=== PATIENT | female | born 1990 | race Caucasian/White ===

== ENCOUNTER 2023-07-03 16:34 | Outpatient (CLI) | payer OTHER, SELFPAY ==
--- NOTE | 2023-07-03 17:00 | CRLHL7_ITS ---
For Patients: As a result of the Century Cures Act, medical imaging exams and procedure reports are released immediately into your electronic medical record. You may view this report before your referring provider. If you have questions, please contact your health care provider. INDICATION: Dating and viability TECHNIQUE: Transvaginal scanning was performed to optimally evaluate the IUP and adnexa. Ovarian blood flow was evaluated with color-flow and pulsed Doppler. COMPARISON: None. FINDINGS: There is a living IUP with gestational age of 9 weeks 6 days by LMP and 10 weeks 3 days by today`s crown-rump length. EDC based on today`s crown-rump length is 01/25/2023. The embryonic heart rate is measured at 171 beats per minute. The placenta is not yet formed. No subchorionic hemorrhage is evident. The ovaries are normal in size and shape. The right ovary measures 3.5 x 3.0 x 1.4 cm and the left 3.5 x 1.7 x 1.0 cm. Ovarian blood flow is demonstrated with color-flow and pulsed Doppler. No adnexal mass or free fluid is apparent. IMPRESSION: 1. Living IUP with gestational age of 9 weeks 6 days by LMP and 10 weeks 3 days by today`s crown-rump length. EDC based on today`s crown-rump length is 01/25/2023. 2. No complication evident. Dictated by Moises Mederos MD @ 07/05/2023 1:40:13 PM (Electronically Signed)
== END 2023-07-03 16:35 | disposition home or self-care (01) ==
LOC: US 16:35
PROVIDERS: PCP Registered Nurse; Visit Provider Registered Nurse
DX: Z34.91 Encounter for supervision of normal pregnancy, unspecified, first trimester (principal); Z3A.09 9 weeks gestation of pregnancy
CPT/HCPCS: 76817; 86703; 86706; 86803; 86850; 86900; 86901; 87086; 87340; 87491; 87591

== ENCOUNTER 2023-07-03 18:04 | Outpatient (CLI) | payer OTHER, SELFPAY ==
[2023-07-03 22:02] LABS: Chlamydia DNA Amplified* NOT DETECTED (No Detected); GC DNA Amplified* NOT DETECTED (No Detected)
== END 2023-07-03 18:05 | disposition home or self-care (01) ==
PROVIDERS: PCP Registered Nurse; Visit Provider Registered Nurse
DX: Z34.91 Encounter for supervision of normal pregnancy, unspecified, first trimester (principal); Z3A.09 9 weeks gestation of pregnancy
CPT/HCPCS: 86592; 86703; 86704; 86706; 86762; 86787; 86803; 86850; 86900; 86901; 87086; 87340; 87491; 87591

== ENCOUNTER 2023-09-06 16:41 | Outpatient (CLI) | payer OTHER, SELFPAY ==
--- NOTE | 2023-09-06 17:00 | US_ITS ---
Patient: PAUL BRAY Facility:?[facility] Patient ID:?[id number] Site Patient ID:?[id number]. Site :?1990 Study:?US-Abdomen RUQ-09/06/2023 5:11:31 PM Ordering Physician:LORETO MERA Final Report: INDICATION: Right upper quadrant pain. COMPARISON: None. TECHNIQUE: Real time han scale imaging and color Doppler analysis was performed of the right upper quadrant. FINDINGS: Liver: The liver is normal in size measuring 13.8 cm in length. Normal echogenicity. No focal liver lesions identified. Gallbladder: No stones or sludge. No wall thickening or pericholecystic fluid. Negative sonographic Isaacs sign. Bile ducts: The common bile duct measures 2 mm in diameter. Pancreas: Normal where seen. Right kidney: The right kidney measures 11.2 cm in length. No hydronephrosis. Vascular: Normal caliber proximal abdominal aorta. The IVC and main portal vein appear patent. IMPRESSION: Unremarkable exam. Dictated by Ella Dhaliwal MD @ 09/07/2023 3:48:25 AM Signed by:?Ella Dhaliwal MD @09/07/2023 3:48:25 AM (Electronic Signature)
== END 2023-09-06 16:42 | disposition home or self-care (01) ==
LOC: US 16:42
PROVIDERS: Visit Provider Obstetrics & Gynecology
DX: R10.11 Right upper quadrant pain (principal)
CPT/HCPCS: 76705

== ENCOUNTER 2023-09-13 12:44 | Outpatient (CLI) | payer OTHER, SELFPAY ==
--- NOTE | 2023-09-13 13:00 | US_ITS ---
Patient: PAUL BRAY Facility:?[facility] Patient ID:?[id number] Site Patient ID:?[id number]. Site :?1990 Study:?US-OB Pelvis BFAS-09/13/2023 1:53:25 PM Ordering Physician:LORETO MERA Final Report: INDICATION: Evaluate anatomy. COMPARISON: 07/03/2023 TECHNIQUE: Real time han scale imaging of the fetus was performed as well as color Doppler analysis of the umbilical vessels. FINDINGS: Sonographic imaging demonstrates a single living intrauterine gestation. Fetus demonstrates a regular cardiac rate of 142 beats per minute. Fetus has a longitudinal vertex position. The placenta lies anteriorly without evidence of placenta previa. The placental edge is located 9.9 cm from the internal cervical os. Amniotic fluid volume appears normal. Single deepest vertical pocket: 6.2 cm. The cervix is closed and measures 3.6 cm in length. The composite ultrasound gestational age is calculated at 20 weeks 5 days with an estimated sonographic due date of 01/26/2024. The estimated weight is 358 grams which lies at the 67th %. The following biometric measurements were obtained: Biparietal diameter: 4.9 cm/20 weeks 6 days 80th% Head circumference: 18.2 cm/20 weeks 4 days 61st% Abdominal circumference: 15.0 cm/20 weeks 2 days 47th% Femur length: 3.4 cm/20 weeks 6 days 65th% The HC/AC ratio measures: 1.21 range (1.06-1.25) On anatomic survey, there is a normal appearance of the cerebral ventricles, cavum septi pellucidi, cisterna magna and cerebellum. The nose, lips, and facial profile appear normal. The cervical, thoracic and lumbar spine are well visualized and appear normal. There is a normal four-chamber heart view and the left and right ventricular outflow tracts appear normal. The diaphragm and stomach appear normal. The kidneys and bladder also appear normal. There is a normal three-vessel cord and cord insertion site. The four extremities appear normal. Anterior uterine fibroid is present measuring 2.5 x 1.3 x 2.4 cm. IMPRESSION: Concordance of clinical and sonographic dating. No intrinsic abnormalities noted on anatomic survey. Anterior uterine fibroid measuring 2.5 cm. Dictated by Byron Scherer MD @ 09/14/2023 10:15:44 AM Signed by:?Byron Scherer MD @09/14/2023 10:15:44 AM (Electronic Signature)
== END 2023-09-13 12:45 | disposition home or self-care (01) ==
LOC: US 12:44
PROVIDERS: Visit Provider Obstetrics & Gynecology
DX: Z34.92 Encounter for supervision of normal pregnancy, unspecified, second trimester (principal); O34.12 Maternal care for benign tumor of corpus uteri, second trimester; D25.9 Leiomyoma of uterus, unspecified; Z3A.20 20 weeks gestation of pregnancy
CPT/HCPCS: 76805

== ENCOUNTER 2023-11-07 15:03 | Outpatient (CLI) | payer OTHER, SELFPAY | END 2023-11-07 15:04 | disposition home or self-care (01) | LOC: NFLDREF 11-23 15:03 | PROVIDERS: Visit Provider Advanced Practice Midwife | DX: Z34.03 Encounter for supervision of normal first pregnancy, third trimester (principal) | CPT/HCPCS: 86592 ==

== ENCOUNTER 2024-01-03 11:00 | Outpatient (CLI) | payer OTHER, SELFPAY ==
[2024-01-04 12:57] LABS: Strep B DNA Probe Negative (Negative)
[2024-01-04 12:59] LABS: Strep B Susceptibility Needed? No
== END 2024-01-03 11:01 | disposition home or self-care (01) ==
PROVIDERS: Visit Provider Advanced Practice Midwife
DX: Z34.93 Encounter for supervision of normal pregnancy, unspecified, third trimester (principal); Z3A.36 36 weeks gestation of pregnancy
CPT/HCPCS: 87081; 87653

== ENCOUNTER 2024-02-04 03:49 | Inpatient (IN) | payer OTHER, SELFPAY ==
[2024-02-04] VITALS (38 sets, daily range): BP systolic 98–160; BP diastolic 54–91; PULSE 58–90; RESP 16–18; TEMP 36.3–37.4; O2SAT 97
--- OUTSIDE RECORDS SUMMARY | 2024-02-04 01:20 | XMS_ITS | Clinical Summary ---
Author Organization [facility] Address [place], [place] [address] Care Team Providers Care Septic Technician Name Role Phone Pcp, No Primary Care Provider Unavailabl e Allergies Active Allergy Reactions Criticality Noted Date Comments Gluten Stomach Upset,Nausea Only Unknown 01/30/2017 Milk Stomach Upset,Nausea And Vomiting Unknown Medications Medication Sig Dispensed Refills Start Date End Date Status magnesium 250 mg tab Take 1 Tablet by mouth once daily. Active cholecalciferol (VITAMIN D3) 1,000 unit tablet Nature made Vitamin D3 2000iu daily 0 09/15/2021 Active medication order composer collagen in tea at times 0 09/15/2021 Active Active Problems No known active problems Immunizations Name Administration Dates Next Due DTP 10/19/1994, 1,01/18/1990,1989,08/15 Hepatitis A (Peds) 07/16/2008 Hepatitis B, Unspecified 04/25/2002,10/14/2001,0 09/09/2001 Hib Conjugate, Unspecified 11/07/1990 Inactivated Polio Vaccine 10/19/1994,11/05/1990, 1989,1989 MMR 09/26/2001,11/05/1990 Td (Age >=7 Years) 01/12/2003 Tdap 05/13/2012 Typhoid (injectable) 07/16/2008 Family History Medical History Relation Name Comments Good Health Father Good Health Mother Good Health Sister 1 Good Health Sister 2 Relation Name Status Comments Father Mother Sister 1 Sister 2 Social History Tobacco Use Types Packs/Day Years Used Date Smoking Tobacco: Never Smokeless Tobacco: Never Tobacco Cessation:Counseling Given: Yes Alcohol Use Standard Drinks/Week Comments Yes 1 (1 standard drink = 0.6 oz pur e alcohol) occ glass wine Social Connections Answer Date Recorded Frequency of Communication with Friends and Fami ly Not on file 2021 Financial Resource Strain Answer Date R ecorded Difficulty of Paying Living Expenses Not on file 2021 Difficulty of Paying Living Expenses Not on file 2021 Sex and Gender Information Value Date Recorded Sex Assigned at Not on file Gender Identity Not on file Sexual Orientation Not on file Obstetrics History Last Filed Vital Signs Vital Sign Reading Time Taken Comments Blood Pressure 114/63 09/15/2021 1:41 PM CDT Pulse 60 09/15/2021 1:41 PM CDT Temperature 36.9 ??C (98.5 ??F) 12/17/2012 1 :40 PM CDT Respiratory Rate - - Oxygen Saturation 100% 12/17/2012 1:4 0 PM CDT Inhaled Oxygen Concentration - - Weight 78.1 kg (172 lb 3.2 oz) 09/16/19 1:41 PM CDT with shoes Height 175.3 cm (5' 9) 09/15/2021 1:41 PM CDT Body Mass Index 25.43 09/15/2021 1:41 PM CDT Plan of Treatment Health Maintenance Due Date Last Done Comments Depression screening for age 12+ 2001 Hepatitis C screening for ag e 18-79 2007 Pap test for age 21-65 01/20/2022 9, 01/21/2016 Tetanus booster 05/13/2022 05/13/2012, 05/13/2012, 01/12/2003 BMI (ht and wt on same day) for age 18+ 09/15/2022 09/15/2021 COVID-19 vaccine series ( season) 2023 Influenza for age 9-49 02/24/2024 Tdap Completed 05/13/2012 HIV for age 15-65 Completed 09/17/2012 Pneumococcal series for age 6-64 Aged Out No longer eligible b ased on patient's age to complete this topic Procedures Procedure Name Priority Date/Time Associated Diagnosis Comments UX DEVELOPER THIN PREP PAP SCREEN IMAGED Routine 01/20/2019 12:00 PM CDT ANTI HIV 1/2 Routine 09/17/2012 9:19 AM CDT Foreign travel from Last 3 Months or Most Recently Relevant to Health Maintenance Results * UX DEVELOPER THIN PREP PAP SCREEN IMAGED (01/20/2019 12:00 PM CDT) Case Report Gynecologic Cytology Report ? Case: [id number] ? Authorizing Provider: ??Margaret Lester PA-C ?Collected: ? 01/20/2019 1200 ? Ordering Location: ? [facility] ?Received: ?01/20/2019 1859 ? First Screen: ?Rios Vega ? Specimen: ?UX DEVELOPER ThinPrep Vial Screening, Cervical/Vaginal, 01/20/19 ? 01/28/2019 1:24 PM CDT [facility] INTERPRETATION/ RESULT NEGATIVE FOR INTRAEPITHELIAL LESION OR MALIGNANCY (NIL) (none) 01/28/2019 1:24 PM CDT [facility] IMEN ADEQUACY Satisfactory for evaluation Endocervical component present 01/28/2019 1:24 PM CDT [facility] HPV REQUEST HPV if ASCUS 01/28/2019 1:24 PM CDT [facility] Date of LMP 01/16/2019 01/28/2019 1:24 PM CDT [facility] Last Pap Date 01/28/2019 1:24 PM CDT [facility] Comment:2015 Last Pap Result NIL 9 1:24 PM CDT [facility] Automated Review Successful 01/28/2019 1:24 PM CDT [facility] Comment:Specimen processed s uccessfully by automated oil refinery operator device, ShotlstPrep Imaging System, [employer] Note The pap test is a screening technique, not a diagnostic procedure. ??It is used primarily to screen for squamous cancers and precursor lesions. ??Published studies have shown that it is subject to both false negative and false positive results. ??The pap test should not be used as the sole means to diagnose or exclude pre-malignant and malignant lesions. Cytology is screened and interpreted at [facility] - [address], [place] [address] and [facility] - [address]; [place] [address] and [facility] - [address]; [place] [address] and [facility] [address]; [place] [address] 01/28/2019 1:24 PM CDT [facility] Other (Cervical/Vagina l) 01/20/2019 12:00 PM CDT 01/20/2019 6:59 PM CDT September Trevon ROBERSON PATHOLOGY/CYTOLOGY Performing Organization Address City/[facility]/ZIP Co de Phone Number [facility] [address] [place] [address], * ANTI HIV 1/2 (09/17/2012 9:19 AM CDT) ANTI HIV 1/2 Non-reacti ve [facility] Blood specimen (specimen) BLOOD SPECIMEN / Unknown 09/17/2012 9:19 AM CDT 09/17/2012 9:05 AM CDT Zuleika Waters CERAMIC DESIGN ENGINEER SEND OUTS [employer] [facility] INTERNAL ZIP [id number] [place] [address] from Last 3 Months or Most Recently Relevant to Health Maintenance Care Teams Septic Technician Relationship Specialty Start Date End Date Pcp, No . PCP - General 05/31/18
[2024-02-04 02:16] LABS: Amnisure Rom* POSITIVE
--- NOTE | 2024-02-04 03:33 | P.LDBA_ITS ---
Subjective History of Present Illness Date Seen: 02/04/24 Narrative: Ruma is being admitted to Labor and Delivery for SROM around 29. She is a 33 year old at 40.5 weeks gestation. Her full history and physical was dictated by Brit Valadez CNM on 01/09/24. Please see this for details. She has been leaking clear fluid since 29 and started ellie shortly after. She is ellie about every 5-10 minutes. They are mild but she feels they have become more painful over time. We discussed options for continuing labor including expectant management or Pitocin augmentation and discussed risks and benefits of each. She declines a SVE at this time but is open to it later this m orning if no change in situation before then. She would like to proceed with expectant management at this time. Specific Issues/Plans G 1 P 0 H&P done by Chung Valadez APRN, CNM on 01/09/24 1. Factor 5 Leiden, heterozygous. She has never had a clot. Her mother had a PE post cancer diagnosis, after age 50. Recommended daily baby aspirin. Reviewed ACOG recommendations. Offered antepartum surveillance w/o anticoagulation therapy or prophylactic LMWH/UFH. She is not currently interested in anticoagulation therapy. Recommend prophylactic anticoagulation therapy with intermediate- dose LMWH/UFH. 2. Rubella nonimmune. Recommend vaccine. 3. Anemia at 28 weeks 10.3, recommended iron supplements Taking Iron EOD Hgb at 34wks 11.4 Flu: Declined. Covid: Declined. OB - Problem Based A/P Additional Plan (1) SROM (spontaneous rupture of membranes): Status: Acute (2) Pain during labor: Status: Acute (3) Factor 5 Leiden mutation, heterozygous: Problem details: No personal history of clots Status: Acute (4) Rubella non-immune status, antepartum: Status: Acute Plan ASSESSMENT:? at 40.5 weeks gestation? GBS negative? complicated by: factor 5 Leiden heterozygous (declined anticoagulation therapy in ), rubella non-immune, anemia (resolved).? Elevated BP on admit? Postterm IOL? Blood type:?A+ PLAN:? 1. Reviewed risks and benefits of expectant management vs Pitocin augmentation. Would like expectant management. Will consider augmentation if needed. 2. Candidate for analgesia of choice. Planning unmedicated .? 3. Anticipate ? 4. Expectant management at this time.? 5. Intermittent auscultation after reactive tracing. Delivery/Labor/Induction Plan Plan: expectant management OB Result Labs Blood Type: A (+) positive Rubella: nonimmune RPR/VDLR: nonreactive GBS Status: negative HBsAG: negative OB Exam Physical Exam Vital signs: Temp Pulse Resp BP Pulse Ox 98.1 F 58 L 16 122/85 97 02/04/24 01:24 02/04/24 01:37 02/04/24 01:24 02/04/24 01:37 02/04/24 01:39 Narrative: Psychiatric:? Alert and oriented x3? HEENT:? Normocephalic, atraumatic? Neck:? Supple without adenopathy or thyromegaly? Lungs:? Clear to auscultation bilaterally? Heart:? Regular rate and rhythm, no murmur, rub or gallop? Abdomen:? Soft, nontender, and gravid? Extremities:? No edema or erythema? Detailed Labor and Delivery Exam Patient Gravid: Yes Contraction Frequency: 2-6 Contraction intensity: Mild Fetus (Single) Heart Rate Baseline: 115 Monitor Accelerations: Present Monitor Decelerations: None Police Communications Operator Variability: Moderate (6-25)
--- NOTE | 2024-02-04 08:36 | PM.OBPNL ---
Subjective Time Seen by Provider: 09:30 Date Seen: 02/04/24 Narrative: Ruma is a 33 yo G1 at 40 5/7 weeks gestation that presented earlier this morning for ROM that occurred at 0030 this morning with clear fluid. She was feeling some mild cramping after but was able to rest some. Since then they have slowly became more regular and she is feeling them more. She continues to leak scant amounts of clear fluid. She denies any bleeding. She is coping well with labor and supported by her , Willie. Objective Exam: Objective: Constitutional: Alert and oriented x3, mild/moderate distress, coping well Vital signs stable, see nurse documentation Abdomen: gravid, contractions palpate mild/moderate with contractions and soft between Cervix: Deferred NST: 115 bpm/moderate variability Contractions every 3-5 minutes Vital Signs: Last Vital Signs Temp 97.6 F 02/04/24 07:26 Pulse 70 02/04/24 07:28 Resp 16 02/04/24 06:39 BP 123/80 02/04/24 07:28 Pulse Ox 97 02/04/24 07:25 Contractions Contraction intensity: Mild Plan Plan: ASSESSMENT:? at 40.5 weeks gestation? GBS negative? complicated by: factor 5 Leiden heterozygous (declined anticoagulation therapy in ), rubella non-immune, anemia (resolved).? Elevated BP on admit? Blood type:?A+ PLAN:? 1. Reviewed risks and benefits of expectant management vs Pitocin augmentation. Would like expectant management. Will consider augmentation if needed. 2. Candidate for analgesia of choice. Planning unmedicated . Candidate for analgesia of choice.?? 3. Patient encouraged to reposition and ambulate to promote physiologic labor and .? 4. Expectant management at this time.? 5. Intermittent auscultation after reactive tracing. 6. Anticipate .
--- NOTE | 2024-02-04 17:03 | PM.OBPNL ---
Subjective Date Seen: 02/04/24 Narrative: Ruma is a 33 yo G1 at 40 5/7 weeks gestation that presented early this morning for ROM with clear fluid at 0030. She has been changing positions throughout the day, doing the labor warm-up, and resting to help facilitate labor. Her contractions have progressively became more regular and intense. She is now working hard breathing through them and intermittently feeling rectal pressure. Exam has been deferred since admission due to ROM. She has had minimal leaking of fluid since this morning. We have discussed AROM of forebag if needed to facility labor. Has declined when asked earlier, is open to the idea. is at bedside and is very supportive and helpful with labor. Objective Exam: Objective: Constitutional: Alert and oriented x3, moderate/severe distress, coping well Vital signs stable, see nurse documentation Abdomen: gravid, contractions palpate moderate/strong with contractions and soft between Cervix: 5 cm/90%/0 station/vertex Intermittent auscultation: 120's Vital Signs: Last Vital Signs Temp 98.3 F 02/04/24 16:58 Pulse 71 02/04/24 14:56 Resp 16 02/04/24 06:39 BP 111/63 02/04/24 14:56 Pulse Ox 97 02/04/24 10:48 Plan Plan: ASSESSMENT:? at 40.5 weeks gestation? GBS negative? complicated by: factor 5 Leiden heterozygous (declined anticoagulation therapy in ), rubella non-immune, anemia (resolved).? Elevated BP on admit, normotensive since admission Labor type: Spontaneous, Active labor? status reassuring PLAN:? 1. Continue with expectant management. Will consider augmentation if needed. Discussed rupture of forebag. Patient is agreeable, ruptured for clear fluid. 2. Candidate for analgesia of choice. Planning unmedicated . Candidate for analgesia of choice.?? 3. Patient encouraged to reposition and ambulate to promote physiologic labor and .? 4. Expectant management at this time.? 5. Intermittent auscultation after reactive tracing. 6. Anticipate .
[2024-02-04] MEDS: LACTATED RINGERS 1000 ML 1,000 ML 1200 ML IV ×2 (22:07→23:06)
[2024-02-04 22:11] LABS: Basophils Percent Auto 0.1 % (0.0-3.0); Hematocrit 37.9 % (33.0-51.0); Hemoglobin* 12.7 gm/dL (12.0-16.0); Immature Granulocytes Pct Auto 0.5 %; Lymphocytes Percent Auto 4.2 % (20-44); Mean Corpuscular HGB Conc 34 gm/dL (32-36); Mean Corpuscular Hemoglobin 30 pg (26-34); Mean Corpuscular Volume 90 fL (80-100); Monocytes Percent Auto 2.2 % (0.0-11.0); Platelet Count* 189 K/uL (140-440); RDW Coefficient of Variation % 12.5 % (11.5-15.5); Slide Review Reflex No; White Blood Count* 19.96 K/uL (4.50-11.00)
--- NOTE | 2024-02-04 22:47 | PM.OBPNL ---
Subjective Date Seen: 02/04/24 Narrative: Ruma is a 33 yo G1 at 40 5/7 weeks gestation that presented early this morning for ROM with clear fluid at 0030. She has been changing positions throughout the day, doing the labor warm-up, and resting to help facilitate labor. Her contractions have progressively became more painful and regular. She is breathing through them. Her is providing her labor support. She was in the tub and we discussed cervical exam to assess labor status. She remains unchanged from a few hours ago. We discussed ways to help with labor progress including something to help her relax. We reviewed options including nitrous, fentanyl, or epidural. Patients plan was to go unmedicated. Objective Exam: Objective: Constitutional: Alert and oriented x3, severe distress, coping well Vital signs stable, see nurse documentation Abdomen: gravid, contractions palpate moderate/strong with contractions and soft between Cervix: 5 cm/70%/0 station/vertex NST: 125 bpm/moderate variability/15x15 accelerations/ early decelerations/contractions every 1-4 minutes Vital Signs: Last Vital Signs Temp 98.5 F 02/04/24 19:28 Pulse 83 02/04/24 21:34 Resp 16 02/04/24 06:39 BP 139/63 02/04/24 21:34 Pulse Ox 97 02/04/24 10:48 Assessment Heart Rate Baseline: 115 Plan Plan: ASSESSMENT:? at 40.5 weeks gestation? GBS negative? complicated by: factor 5 Leiden heterozygous (declined anticoagulation therapy in ), rubella non-immune, anemia (resolved).? Elevated BP on admit, normotensive since admission Labor type: Spontaneous, Active labor? Category I Tracing PLAN:? 1. Continue with expectant management. Discussed ways to help with relaxing. 2. Candidate for analgesia of choice if desired. She was planning unmedicated but is open to trying nitrous. She still has other options as desired. 3. Intermittent monitoring of status. Will consider continuous if she desires other pain management options. 4. Patient encouraged to reposition and ambulate to promote physiologic labor and .? 5. Anticipate ?
[2024-02-04] MEDS: BUPIVACAINE 0.25% PF 10 ML 10 ML ML EPIDURAL (22:58)
[2024-02-04] MEDS: ROPIVACAINE 0.2% 100 ml 100 ML 12 MG EPIDURAL (23:00)
--- NOTE | 2024-02-04 23:13 | PM.ANBPRC ---
PFSH PFS Medical History Small intestinal bacterial overgrowth ?K63.8219 - Small intestinal bacterial overgrowth, unspecified (ICD-10) Surgical History [place] teeth extracted ?K08.409 - Partial loss of teeth, unspecified cause, unspecified class (ICD-10) Family History Mother Gallbladder cancer, Onset Age: 57 Pulmonary embolism Maternal Grandmother Diabetes, Onset Age: 30 Uterine cancer, Onset Age: 68 Sister Thyroid disease Maternal Grandfather DVT (deep venous thrombosis), Onset Age: 20 Pancreatic cancer, Onset Age: 70 Paternal Grandmother Brain aneurysm Sister History of cholecystectomy Uncle Pancreatic cancer, Onset Age: 50 Social History Narrative: 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 What is your current living situation?: I presently have a place to live Problems where you live: no known problems In the past 12 months, utilities in danger of being shut off: no In past 12 months, lack of transportation kept you from medical appts, meetings, work, or getting things needed for daily living: no In the past 12 mos, have been you worried that your food would run out before you had money to buy more?: never true In the past 12 mos, the food you bought just didn't last and you didn't have money to buy more?: never true Smoking Status: Never smoker How often does anyone, including family, friends and others, physically hurt you: never How often does anyone, including family, friends and others, insult or talk down to you: never How often does anyone, including family, friends and others, threaten you with harm: never How often does anyone, including family, friends and others, scream or curse at you: never Little interest or pleasure in doing things: not at all Feeling down, depressed, or hopeless: not at all Meds Home Medications and Allergies Home Medications ?Medication ?Instructions ?Recorded ?Confirmed ?Type cholecalciferol (vitamin D3) 50 100 mcg PO QDAY 07/03/23 02/04/24 History mcg (2,000 unit) capsule docosahexaenoic acid 200 mg 200 mg PO DAILY 07/03/23 02/04/24 History capsule ( DHA) magnesium 250 mg tablet 250 mg PO QDAY 07/03/23 02/04/24 History aspirin 81 mg tablet,delayed 81 mg PO QDAY 08/01/23 02/04/24 History release (Adult Low Dose Aspirin) ferrous sulfate 27 mg iron tablet 27 mg PO .every other day 11/23/23 02/04/24 History Allergies Allergy/AdvReac Type Severity Reaction Status Date / Time gluten Allergy Intermediate Gastrointestinal Verified 02/04/24 14:41 Upset Results Labs Labs: Laboratory Results - last 24 hr 02/04/24 02/04/24 01:40 22:05 WBC 19.96 H RBC 4.20 Hgb 12.7 Hct 37.9 MCV 90 MCH 30 MCHC 34 RDW Coeff of Rikki 12.5 Plt Count 189 Neut % (Auto) 93.0 H Lymph % (Auto) 4.2 L [place] % (Auto) 2.2 Eos % (Auto) 0.0 Baso % (Auto) 0.1 Neut # (Auto) 18.60 H Lymph # (Auto) 0.80 L [place] # (Auto) 0.40 Eos # (Auto) 0.00 Baso # (Auto) 0.00 Abs Immat Gran (auto) 0.10 Imm/Tot Granulo (auto) 0.5 Membrane Rupture POSITIVE Vital Signs Vital Signs: Last Vital Signs Temp 98.5 F 02/04/24 23:07 Pulse 88 02/04/24 23:12 Resp 16 02/04/24 06:39 BP 117/66 02/04/24 23:12 Pulse Ox 97 02/04/24 10:48 Weight: 101.877 kg Anesthesia Procedures Epidural Insertion Patient Location: OB Start Time: :25 Stop Time: 23:25 Start Date: 02/04/24 Stop Date: 02/04/24 Reason for Block: procedure for pain Patient Position: sitting Performed By: Johnathan Fisher Preanesthetic Checklist: IV checked, risks and benefits discussed, surgical consent, monitors and equipment checked, pre-op evaluation, timeout performed and anesthesia consent Prep: chlorhexidine gluconate Monitoring: blood pressure monitoring, continuous pulse oximetry and heart rate Approach: midline Vertebral Space: lumbar (1-5) Epidural Technique: MERLIN saline Needle Type: Tuohy needle Injection Technique: continuous catheter Needle gauge: 17 Needle Length (cm): 10 cm Needle Insertion Depth (cm): 6 Catheter Gauge: 19 Catheter Type: multi-orifice Catheter at skin depth (cm): 12 Test Dose Result: negative and lidocaine 1.5% with epinephrine 1 to 200,000
[2024-02-04] MEDS: PHENYLEPHRINE 100 MCG/ML SYRINGE IVP ×2 (23:24→23:31)
[2024-02-05] VITALS (50 sets, daily range): BP systolic 106–145; BP diastolic 45–86; PULSE 63–123; RESP 16–18; TEMP 36.6–37.2; O2SAT 96–100
[2024-02-05] MEDS: LACTATED RINGERS 1000 ML 1,000 ML 125 ML IV (02:24)
[2024-02-05] MEDS: OXYTOCIN 30 unit/500 ML in NS 30 UNIT/500 ML BAG IVPB (03:54)
--- NOTE | 2024-02-05 04:07 | PM.OBPNVD1 ---
OB - PN:Subj Subjective Date Seen: 02/05/24 OB - PN: Obj Exam Physical Exam: Vital signs: Temp Pulse Resp BP Pulse Ox 98.6 F 123 H 16 139/74 97 02/05/24 02:54 02/05/24 04:02 02/05/24 02:54 02/05/24 04:02 02/04/24 10:48 OB - PN: Obj Data Labs Labs: Laboratory Results - last 24 hr 02/04/24 22:05 WBC 19.96 H RBC 4.20 Hgb 12.7 Hct 37.9 MCV 90 MCH 30 MCHC 34 RDW Coeff of Rikki 12.5 Plt Count 189 Neut % (Auto) 93.0 H Lymph % (Auto) 4.2 L [place] % (Auto) 2.2 Eos % (Auto) 0.0 Baso % (Auto) 0.1 Neut # (Auto) 18.60 H Lymph # (Auto) 0.80 L [place] # (Auto) 0.40 Eos # (Auto) 0.00 Baso # (Auto) 0.00 Abs Immat Gran (auto) 0.10 Imm/Tot Granulo (auto) 0.5 Blood Type A Positive Antibody Screen NEGATIVE OB - PN: A/P Delivery Assessment and Plan (1) SROM (spontaneous rupture of membranes): Status: Acute (2) Pain during labor: Status: Acute (3) Factor 5 Leiden mutation, heterozygous: Problem details: No personal history of clots Status: Acute (4) Rubella non-immune status, antepartum: Status: Acute
--- NOTE | 2024-02-05 04:07 | PM.OBPNL ---
Subjective Date Seen: 02/05/24 Narrative: Ruma is a 33 yo G1 at 40 6/7 weeks gestation that presented early this morning for ROM with clear fluid at 0030. She has been changing positions throughout the day, doing the labor warm-up, and resting to help facilitate labor. Her contractions have progressively became more painful and regular. She is breathing through them. Her is providing her labor support. She is now comfortable and resting with an epidural. She was able to take a short nap and has been encouraged to try to sleep more if she can. Discussed plan of care and questions answered. Objective Exam: Constitutional: Alert and oriented x3, no distress, coping well Vital signs stable, see nurse documentation Abdomen: gravid, contractions palpate moderate/strong with contractions and soft between Cervix: 8 cm/90%/0 station/vertex NST: 145 bpm/moderate variability/15x15 accelerations/occasional late decelerations/contractions every 2-6 minutes Vital Signs: Last Vital Signs Temp 98.6 F 02/05/24 02:54 Pulse 123 H 02/05/24 04:02 Resp 16 02/05/24 02:54 BP 139/74 02/05/24 04:02 Pulse Ox 97 02/04/24 10:48 Plan Plan: ASSESSMENT:? at 40.6 weeks gestation? GBS negative? complicated by: factor 5 Leiden heterozygous (declined anticoagulation therapy in ), rubella non-immune, anemia (resolved).? GHTN based on elevated BP on 2 occasions more than 4 hours apart Labor type: Spontaneous, Active labor? Category II Tracing PLAN:? 1. Discussed expectant versus starting Pitocin. Plan Pitocin to help augment labor. Discussed slowly increasing dose. Patient is agreeable to plan. 2. Continue with epidural for labor pain support. Patient is coping well. 3. Intermittent monitoring of status. Will consider continuous if she desires other pain management options. 4. Patient encouraged to reposition and ambulate to promote physiologic labor and .? 5. GHTN diagnosis discussed with patient. Labs ordered and pending. 6. Anticipate ?
[2024-02-05 04:19] LABS: Hematocrit 35.7 % (33.0-51.0); Hemoglobin* 11.9 gm/dL (12.0-16.0); Mean Corpuscular HGB Conc 33 gm/dL (32-36); Mean Corpuscular Hemoglobin 30 pg (26-34); Mean Corpuscular Volume 91 fL (80-100); Platelet Count* 168 K/uL (140-440); Red Blood Count 3.92 m/uL (4.00-5.20); White Blood Count* 21.64 K/uL (4.50-11.00)
[2024-02-05 04:20] LABS: Slide Review Reflex No
[2024-02-05 04:35] LABS: Total Protein Urine 12 mg/dL
[2024-02-05 04:35] LABS: Aspartate Amino Transferase* 23 U/L (12-35); Blood Urea Nitrogen* 9 mg/dL (5-24); Creatinine* 0.9 mg/dL (0.5-1.5); Estimated Glomerular Filt Rate 86 ml/min
[2024-02-05 04:36] LABS: Alanine Aminotransferase* 17 U/L (4-35)
[2024-02-05 04:36] LABS: Creatinine Urine 56.8 mg/dL; Protein Creatinine Ratio Urine 0.21 (0-0.19)
[2024-02-05] MEDS: ROPIVACAINE 0.2% 100 ml 100 ML 12 MG EPIDURAL (06:22)
--- NOTE | 2024-02-05 07:22 | W.PM.OBVAGDE ---
Documented by User: Amparo Torres CNM 02/06/24 07:51 OB Procedure Vag Delivery Mother Details Mother Details: Ruma is a 33 year-old, 1, now Para 1, admitted on 02/04/24 at 40.5 weeks gestation. : 1 Para: 1 Weeks Gestation: 40.6 Admission Date: 02/05/24 Additional Details Amniotic Membrane Status: SROM Amniotic Membrane Rupture Date: 02/04/24 Amniotic Membrane Rupture Time: 00:30 Amniotic Membrane Fluid Description: Clear Analgesia/Anesthesia Type: Epidural Waterbirth: No Pitcoin: Yes (Max dose 2 mu, AMTSL) Intrapartal Events: Labor Augmentation Delivery augmentation: rupture of membranes (forebag rupture) and pitocin Labor Onset: 17:22 Complete: 06:19 Pushin:20 Heart: heart tones during second stage were category II with variable decelerations during contractions with slow return to baseline and moderate variability. Delivery Details Delivery Date: 02/05/24 Delivery Time: 07:11 Route of delivery: Gender: Female Viability: Alive; Heart Rate Present Position at Delivery: OA Delivery Details: Patient was admitted for PROM 02/03 at 0030 with clear fluid and progressed normally to 5 cm then stalled. She labored in many positions, in the tub, and ambulating. After subsequent checks without change, it was recommended she try a different method of pain relief. She agreed to try nitrous and this worked for a short bit. She then requested an epidural and labor progressed normally. Pitocin was started to help augment labor due to being >24 hours since ROM, it was only ever on 2 cm. Patient was complete at 0619 and pushing at 0620. of a viable female at 0711 in left tilt semi-fowlers on the bed. Vertex delivered OA. No nuchal cord or shoulder. Body delivered easily and without incident. passed to mothers abdomen with a vigorous cry. Cord was clamped and cut at > 5 minutes. APGARS were 8 at one minute and 9 at five minutes respectively. Mouth was bulb suctioned. MARTÍN Nieves assumed care after delivery. Patient has short perineal body, initial exam of laceration was suspicious for rectal muscle involvement, Dr. Bonner was called in to assess. Intact placenta with a 3 vessel cord delivered spontaneously at . Fundus firm. [1st/2nd degree] identified and repaired in typical fashion. QBL [ ] cc. Mother and baby stable; mother plans to breastfeed. weight pending. 1 Minute Interval Total Score: 8 5 Minute Interval Total Score: 9 Additional Details Shoulder Dystocia: No Procedure Done: Global Event Summary Status: Mother and were stable after delivery. Disposition: floor Documented by User: Ezequiel Valadez CNM 02/05/24 09:17 OB Procedure Vag Delivery Delivery Details Delivery Details: Patient was admitted for PROM 02/03 at 0030 with clear fluid and progressed normally to 5 cm then stalled. She labored in many positions, in the tub, and ambulating. After subsequent checks without change, it was recommended she try a different method of pain relief. She agreed to try nitrous and this worked for a short bit. She then requested an epidural and labor progressed normally. Pitocin was started to help augment labor due to being >24 hours since ROM, it was only ever on 2 cm. Patient was complete at 0619 and pushing at 0620. of a viable female at 0711 in left tilt semi-fowlers on the bed. Vertex delivered OA. No nuchal cord or shoulder. Body delivered easily and without incident. passed to mothers abdomen with a vigorous cry. Cord was clamped and cut at > 5 minutes. APGARS were 8 at one minute and 9 at five minutes respectively. Mouth was bulb suctioned. MARTÍN Nieves assumed care after delivery. Patient has short perineal body, initial exam of laceration was suspicious for rectal muscle involvement, Dr. Bonner was called in to assess. Dr. Bonner repaired 2nd degree with periurethral, see her note for details Intact placenta with a 3 vessel cord delivered spontaneously at 0727. QBL 550 cc. Mother and baby stable; mother plans to breastfeed. Infant weight pending. Additional Details Placenta Delivery Time: 07:27 Placental Delivery Description: Spontaneous Blood Loss: 550 Laceration: Periurethral - 1st Degree Blood Loss Measurement Type: QBL Bakri Used: No Sponge/Need Count Correct: Yes Cord Vessel Description: 3 Vessels
--- NOTE | 2024-02-05 08:24 | P.OBCN_ITS ---
OB - CN: HPI Date of Consult Date Seen: 02/05/24 Patient: [facility] Patient Consult date: 02/05/24 Requesting Physician: Amparo Torres CNM Primary Care Provider: Not a Local Provider Consult Narrative Narrative: The patient is a 33 year old G 1 now P 1-0-0-1 woman now s/p at 40 6/7 weeks' gestation. I was consulted by Amparo Torres CNM for evaluation of perineal laceration. History History 1 Elective abortions Para 1 Spontaneous abortions Hx # Term Pregnancies Ectopic pregnancies Hx # Pregnancies Multiple births Number of Living Children 0 Labs Blood type: A (+) positive Rubella: nonimmune RPR/VDLR: nonreactive GBS status: negative HBsAG: negative OB Labs: Lab Assessment Start: 02/04/24 12:57 Freq: ONCE Status: Complete Protocol: PC.OBGBS Activity Type Activity Date Activity User E-sign Co-sign Detail Recorded Client Recorded Date Recorded By Document 02/04/24 12:57 SDD Desktop 02/04/24 13:22 SDD 02/04/24 12:57 Lab Assessment GBS Status negative Is Patient Allergic to Penicillin? No Are Labs Available Yes Maternal Blood Type A Maternal RH Factor Positive Evaluate Maternal Rubella Immune Status Non-Immune Hepatitis B Surface Antigen Negative Maternal HIV Status Negative Maternal Syphillis (RPR) Status Negative PFSH PFSH Medical History Small intestinal bacterial overgrowth ?K63.8219 - Small intestinal bacterial overgrowth, unspecified (ICD-10) Surgical History [place] teeth extracted ?K08.409 - Partial loss of teeth, unspecified cause, unspecified class (ICD- 10) Family History Mother Gallbladder cancer, Onset Age: 57 Pulmonary embolism Maternal Grandmother Diabetes, Onset Age: 30 Uterine cancer, Onset Age: 68 Sister Thyroid disease Maternal Grandfather DVT (deep venous thrombosis), Onset Age: 20 Pancreatic cancer, Onset Age: 70 Paternal Grandmother Brain aneurysm Sister History of cholecystectomy Uncle Pancreatic cancer, Onset Age: 50 Social History Narrative: 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 What is your current living situation?: I presently have a place to live Problems where you live: no known problems In the past 12 months, utilities in danger of being shut off: no In past 12 months, lack of transportation kept you from medical appts, meetings, work, or getting things needed for daily living: no In the past 12 mos, have been you worried that your food would run out before you had money to buy more?: never true In the past 12 mos, the food you bought just didn't last and you didn't have money to buy more?: never true Smoking Status: Never smoker How often does anyone, including family, friends and others, physically hurt you : never How often does anyone, including family, friends and others, insult or talk down to you: never How often does anyone, including family, friends and others, threaten you with harm: never How often does anyone, including family, friends and others, scream or curse at you: never Little interest or pleasure in doing things: not at all Feeling down, depressed, or hopeless: not at all Meds Home Medications and Allergies Home Medications ?Medication ?Instructions ?Recorded ?Confirmed ?Type cholecalciferol (vitamin D3) 50 100 mcg PO QDAY 07/03/23 02/04/24 History mcg (2,000 unit) capsule docosahexaenoic acid 200 mg 200 mg PO DAILY 07/03/23 02/04/24 History capsule ( DHA) magnesium 250 mg tablet 250 mg PO QDAY 07/03/23 02/04/24 History aspirin 81 mg tablet,delayed 81 mg PO QDAY 08/01/23 02/04/24 History release (Adult Low Dose Aspirin) ferrous sulfate 27 mg iron tablet 27 mg PO .every other day 11/23/23 02/04/24 History Allergies Allergy/AdvReac Type Severity Reaction Status Date / Time gluten Allergy Intermediate Gastrointestinal Verified 02/04/24 14:41 Upset OB - H&P: Exam Physical Exam: Vital signs: Temp Pulse Resp BP Pulse Ox 98.6 F 74 18 125/72 99 02/05/24 06:41 02/05/24 08:13 02/05/24 06:41 02/05/24 08:13 02/05/24 06:16 Narrative: Upon examination of vagina and perineum, there was a second-degree perineal laceration noted. The external sphincter was visually and palpably intact. There were extensions of the perineal laceration tracking up the left labium and in between the right labia minora and hymeneal ring. In addition, there was a small tear in the right periurethral region that was bleeding. OB - Results Labs Labs: Short CBC 02/04/24 02/05/24 Range/Units 22:05 04:15 WBC 19.96 H 21.64 H (4.50-11.00) K/uL Hgb 12.7 11.9 L (12.0-16.0) gm/dL Hct 37.9 35.7 (33.0-51.0) % Plt Count 189 168 (140-440) K/uL BMP 02/05/24 04:15 BUN 9 Creatinine 0.9 Liver Function 02/05/24 Range/Units 04:15 AST 23 (12-35) U/L ALT 17 (4-35) U/L OB - CN: A/P Assessment and Plan (1) Obstetrical laceration: Status: Acute Plan Repair of obstetrical laceration, second-degree and periurethral The perineal skin was infiltrated with a small amount of 1% lidocaine. Using 2 0 Vicryl, the perineal body was reapproximated in interrupted fashion. The second-degree repair was performed in the usual fashion. The extension into the left labium was then repaired, and an avulsion of the skin surrounding the posterior fourchette was reapproximated at that time. Finally, 2 [id number] sutures of 3-0 Vicryl were used to obtain hemostasis of the right periurethral laceration. Patient tolerated procedure well.
--- NOTE | 2024-02-05 12:44 | PM.ANPOST ---
Post Anesthesia Note Post Anesthesia Note Patient seen: Inpatient Respiratory Status: adequate Cardiovascular Status: adequate Mental Status: baseline Pain: adequate Temp: baseline Anesthetic awareness: N/A Complications: none Follow care: none
[2024-02-05] MEDS: LANOLIN CREAM 1 APPLIC TOPICAL (13:46)
[2024-02-05] MEDS: ACETAMINOPHEN 500 MG TABLET 1000 MG PO ×2 (13:53→20:08)
[2024-02-05] MEDS: IBUPROFEN 600 MG TABLET PO ×2 (14:45→22:13)
--- OUTSIDE RECORDS SUMMARY | 2024-02-05 15:13 | XMS_ITS | Clinical Summary ---
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 Case: [id number] ? Authorizing Provider: ??Margaret Lester PA-C ?Collected: ? 01/20/2019 1200 ? Ordering Location: ? [facility] ?Received: ?01/20/2019 1859 ? First Screen: ?[place] ? Specimen: ?BROKER ASSOCIATE ThinPrep Vial Screening, Cervical/Vaginal, 01/20/19 ? 01/28/2019 1:24 PM CDT [facility] INTERPRETATION/ RESULT NEGATIVE FOR INTRAEPITHELIAL LESION OR MALIGNANCY (NIL) (none) 01/28/2019 1:24 PM CDT [facility] IMEN ADEQUACY Satisfactory for evaluation Endocervical component present 01/28/2019 1:24 PM CDT [facility] HPV REQUEST HPV if ASCUS 01/28/2019 1:24 PM CDT [facility] Date of LMP 01/16/2019 01/28/2019 1:24 PM CDT [facility] Last Pap Date 01/28/2019 1:24 PM CDT [facility] Comment:2015 Last Pap Result NIL 9 1:24 PM CDT [facility] Automated Review Successful 01/28/2019 1:24 PM CDT [facility] Comment:Specimen processed s uccessfully by automated stonework supervisor device, [employer] Imaging System, [employer] Note The pap test is a [...] lesions. Cytology is screened and interpreted at [facility] - [address], [place] [address] and [facility] - [address]; [place] [address] and [facility] - [address]; [place] [address] and [facility] [address]; [place] [address] 01/28/2019 1:24 PM CDT [facility] Other (Cervical/Vagina l) 01/20/2019 12:00 PM CDT 01/20/2019 6:59 PM CDT September Trevon ROBERSON PATHOLOGY/CYTOLOGY Performing Organization Address City/[facility]/ZIP Co de Phone Number [facility] [address] [place] [address], * ANTI HIV 1/2 (09/17/2012 9:19 AM CDT) ANTI HIV 1/2 Non-reacti ve [facility] Blood specimen (specimen) BLOOD SPECIMEN / Unknown 09/17/2012 9:19 AM CDT 09/17/2012 9:05 AM CDT Zuleika Waters CIRCULATION ASSISTANT SEND OUTS [facility] INTERNAL ZIP [id number] [place] [address] from Last 3 Months or Most Recently Relevant to Health Maintenance Care Teams Metal Building Assembler Relationship Specialty Start Date End Date Pcp, No . PCP - General 05/31/18
[2024-02-06] VITALS: BP 133/84; PULSE 68; RESP 20; TEMP 36.6; O2SAT 97
[2024-02-06 00:15] VITALS: BP 91/69; PULSE 83; RESP 15; TEMP 36.6; O2SAT 96
[2024-02-06] MEDS: ACETAMINOPHEN 500 MG TABLET 1000 MG PO ×3 (02:23→16:23)
[2024-02-06] MEDS: IBUPROFEN 600 MG TABLET PO ×3 (06:15→19:46)
[2024-02-06 07:00] LABS: Hemoglobin* 9.8 gm/dL (12.0-16.0)
--- NOTE | 2024-02-06 08:17 | P.OBPN_ITS ---
OB - PN:Subj Subjective Date Seen: 02/06/24 Patient comments OB post-: no complaints, pain well controlled, tolerating diet and flatus present [place] status: and doing well [place] feeding status: exclusively Narrative: Ruma feels well.? Her pain is well controlled with current medications.? She has no new complaints.? Urinary output is adequate and she is voiding without difficulty.? Has a good appetite, is tolerating a general diet, is passing flatus, and has not had a bowel movement.? Has scant amount of rubra lochia.? She is ambulating well.?She is and feels that things are going well but planning on seeing . She was previously considering discharging today but would like to stay until tomorrow. Her Hbg is 9.8 but denies symptomatic. Will start on PO iron supplement. Discussed recommendation for anticoagulation prophylaxis. Benefits of therapy and risks of declining were discussed but she choosing to decline. Reviewed signs of a blood clot and encouraged rapid evaluation if symptoms develop. She plans to continue taking an 81mg ASA in the period. OB - PN: Obj Exam Physical Exam: Vital signs: Temp Pulse Resp BP Pulse Ox O2 Del Method 97.8 F 83 15 91/69 96 Room Air 02/06/24 00:15 02/06/24 00:15 02/06/24 00:15 02/06/24 00:15 02/06/24 00:15 02/06/24 00:15 Narrative: GENERAL APPEARANCE:? normal affect, alert, no distress? MOOD:? appropriate? CHEST:? clear to auscultation and percussion? HEART:? regular rate and rhythm? ABDOMEN:? soft, non-tender the uterine fundus is U/2 and is appropriate for the stage of recovery..? PERINEUM:? mild edema of the perineum, there is a 2nd degree laceration that is healing well.? EXTREMITIES:? normal and no edema? OB - PN: Obj Data Labs Labs: Laboratory Results - last 24 hr 02/06/24 06:32 Hgb 9.8 L OB - PN: A/P Delivery Assessment and Plan (1) Obstetrical laceration: Status: Acute (2) Lactating mother: Status: Acute (3) care following vaginal delivery: Status: Acute (4) Factor 5 Leiden mutation, heterozygous: Problem details: No personal history of clots Status: Acute (5) Rubella non-immune status, antepartum: Status: Acute Plan day: 1 Plan: routine care Comments: Anticipate discharge home tomorrow.
[2024-02-06 09:30] VITALS: BP 125/76; PULSE 76; RESP 15; O2SAT 96
[2024-02-06] MEDS: DOCUSATE SODIUM 100 MG CAPSULE PO (10:05)
[2024-02-06 16:42] VITALS: BP 95/73; PULSE 83; RESP 15; O2SAT 96
[2024-02-07] VITALS: BP 133/84; PULSE 68; RESP 20; TEMP 36.6; O2SAT 97
[2024-02-07] MEDS: ACETAMINOPHEN 500 MG TABLET 1000 MG PO (01:15)
[2024-02-07] MEDS: IBUPROFEN 600 MG TABLET PO (07:32)
[2024-02-07] MEDS: DOCUSATE SODIUM 100 MG CAPSULE PO (07:32)
[2024-02-07 07:36] VITALS: BP 115/72; PULSE 74; RESP 18; TEMP 36.8
--- NOTE | 2024-02-07 10:57 | P.DS_ITS ---
DS: Providers Provider Date Seen: 02/07/24 Date of admission: 02/04/24 03:49 Primary care physician: Not a Local Provider Admitting Clinician: Krysten Martinez CNM Attending Physician on discharge: Radha Winslow CNM GIZZARD PEELER Date of Discharge: 02/07/24 DS: Diagnosis Discharge Diagnosis (1) care following vaginal delivery: Status: Acute (2) Lactating mother: Status: Acute (3) Obstetrical laceration: Status: Acute Exam Narrative: Exam Narrative: GENERAL APPEARANCE:? normal affect, alert, no distress MOOD:? appropriate CHEST:? clear to auscultation HEART:? regular rate and rhythm ABDOMEN:? soft, non-tender the uterine fundus is At Umbilicus, Midline and is appropriate for the stage of recovery. PERINEUM:? mild edema of the perineum, there is a Perineal Laceration,? that is well approximated. EXTREMITIES:? normal and no edema Const: Vital Signs, click to edit/add: Vital Signs - 24 hr 02/06/24 16:42 02/07/24 00:00 02/07/24 07:36 Temperature 98 F 98.2 F Pulse Rate [Pulse Oximeter] 83 68 74 Respiratory Rate 15 20 18 Blood Pressure [Le ft Arm] 95/73 133/84 115/72 Pulse Oximetry 96 97 Oxygen Delivery Me thod Room Air Room Air Room Air OB - DS: Summary Hospital Course Hospital Course: Ruma is a 33 y.o. who was admitted to L & D for PROM at term. her labor was augmented. ?She had an uncomplicated NVD.?The patient feels well. ?The pain is well controlled with current medications. ?She has no new complaints. ?She is breast feeding and reports things are going well.? the patient has done well.? Vitals have been stable.? She has remained afebrile.? Has a good appetite, is tolerating a general diet. ?She is voiding without difficulty.? She is passing gas and has had a bowel movement.? She is ambulating and denies any dizziness.? Has Small amount of rubra lochia. ?She is planning condoms for prevention. Peripartum Data delivery method: Vaginal Laceration description: Perineal - 2nd Degree Episiotomy description: None complications: none Gender: Female Infant Discharge Plan: Home Status at Discharge Overall status at discharge: patient is progressing back to baseline Time Spent with Patient Time attestation: Total time spent providing and/or coordinating discharge services: Time spent: Less than 30 minutes Discharge Plan Discharge Disposition: Home, Self-Care Date of Admission: 02/04/24 03:49 Attending Provider on Discharge: Radha Winslow Primary Care Provider: Provider,Not a Local Condition: Stable Anticipated Discharge Date/Time: 02/07/24 11:00 Discharge Medications: New docusate sodium 100 mg Capsule 100 mg PO DAILY Qty: 60 0RF Continued DHA 200 mg capsule 200 mg PO DAILY cholecalciferol (vitamin D3) 50 mcg (2,000 unit) capsule 100 mcg PO QDAY magnesium 250 mg tablet 250 mg PO QDAY ferrous sulfate 27 mg iron tablet 27 mg PO .every other day Discontinued aspirin [Adult Low Dose Aspirin] 81 mg tablet,delayed release (DR/EC) 81 mg PO QDAY Discharge Orders: Discharge Order (Routine); Ordered 02/07/24 Ordered By: Radha Winslow Patient Education: OB Care, OB /Breast Feeding Additional Instructions: Discharge instructions were reviewed with the patient including signs and symptoms of infection and home going medications Nothing vaginally for 6 weeks: no tampons or intercourse Do not drive while taking narcotic pain medication(s) Off Work or School for 6 weeks Symptoms to report to doctor: * Bleeding that saturates more than one pad per hour * Passing clots larger than the size of a golf ball * Pain not relieved by prescribed medication * Fever above 100.4 degrees Fahrenheit * A foul vaginal odor * Difficulty in emotions, mood, and functions * Thoughts of hurting yourself and/or * Painful, reddened area in your breast * Any drainage, redness, or tenderness in your IV/epidural site * Severe headache that doesn't improve after taking medications * Changes in vision, including temporary loss of vision, blurred vision, and/or light sensitivity * Upper abdominal pain (usually under ribs on the right side) * Decrease in urination or painful, frequent urinating * Chest pain * Shortness of breath * Tenderness or pain with redness and/swelling in the calf(s) of your leg 2-week visit: discuss feeding concerns, review control options and screen for anxiety/depression. 6-week visit for an annual exam. consultation services are available to all mothers and babies for the first year after delivery.? To make an appointment, please call [phone]. Activity Level: Activity as Tolerated Discharge Diet: Regular Follow Up Appointments: [facility] [Provider Group] Forms: [employer] Info Instructions
[2024-02-08 01:25] LABS: Rapid Plasma Reagin (RPR) Non Reactive (Non Reactive)
== END 2024-02-07 12:30 | disposition home or self-care (01) | DRG 806 ==
LOC: OB OUT 03:50 → OB 08:52
PROVIDERS: Advanced Practice Midwife; Admitting Provider Advanced Practice Midwife; Visit Provider Advanced Practice Midwife
DX: O42.12 Full-term premature rupture of membranes, onset of labor more than 24 hours following rupture (principal); D68.51 Activated protein C resistance; Z37.0 Single live birth; O99.12 Other diseases of the blood and blood-forming organs and certain disorders involving the immune mechanism complicating childbirth; O48.0 Post-term pregnancy; O13.4 Gestational [pregnancy-induced] hypertension without significant proteinuria, complicating childbirth; O70.1 Second degree perineal laceration during delivery; O71.82 Other specified trauma to perineum and vulva; Z3A.40 40 weeks gestation of pregnancy
CPT/HCPCS: 01967; 36415; 82565; 82570; 84112; 84156; 84450; 84460; 84520; 85018; 85025; 85027; 86592; 86850; 86900; 86901; G0463; A9270; J0665; J2371; J2795; J7120

== ENCOUNTER 2024-02-11 12:32 | Outpatient (CLI) | payer OTHER, SELFPAY ==
--- OUTSIDE RECORDS SUMMARY | 2024-02-11 12:34 | XMS_ITS | Clinical Summary ---
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 Case: [id number] ? Authorizing Provider: ??Margaret Lester PA-C ?Collected: ? 01/20/2019 1200 ? Ordering Location: ? [facility] ?Received: ?01/20/2019 1859 ? First Screen: ?Rios Vega ? Specimen: ?AUTOMOBILE UPHOLSTERY TRIM INSTALLER ThinPrep Vial Screening, Cervical/Vaginal, 01/20/19 ? 01/28/2019 1:24 PM CDT [facility] INTERPRETATION/ RESULT NEGATIVE FOR INTRAEPITHELIAL LESION OR MALIGNANCY (NIL) (none) 01/28/2019 1:24 PM CDT [facility] IMEN ADEQUACY Satisfactory for evaluation Endocervical component present 01/28/2019 1:24 PM CDT [facility] HPV REQUEST HPV if ASCUS 01/28/2019 1:24 PM CDT [facility] Date of LMP 01/16/2019 01/28/2019 1:24 PM CDT [facility] Last Pap Date 01/28/2019 1:24 PM CDT [facility] Comment:2015 Last Pap Result NIL 9 1:24 PM CDT [facility] Automated Review Successful 01/28/2019 1:24 PM CDT [facility] Comment:Specimen processed s uccessfully by automated dialysis tech device, SnapfishPrep Imaging System, [employer] Note The pap test is a [...] lesions. Cytology is screened and interpreted at [facility] - [address], [place] [address] and - [address]; [place] [address] and [facility] - [address]; [place] [address] and [facility] [address]; [place] [address] 01/28/2019 1:24 PM CDT [facility] Other (Cervical/Vagina l) 01/20/2019 12:00 PM CDT 01/20/2019 6:59 PM CDT September Trevon ROBERSON PATHOLOGY/CYTOLOGY Performing Organization Address City/[facility]/ZIP Co de Phone Number [facility] [address] [place] [address], * ANTI HIV 1/2 (09/17/2012 9:19 AM CDT) ANTI HIV 1/2 Non-reacti ve [facility] Blood specimen (specimen) BLOOD SPECIMEN / Unknown 09/17/2012 9:19 AM CDT 09/17/2012 9:05 AM CDT Zuleika Waters PHARMACY INFORMATICS SPECIALIST SEND OUTS [facility] INTERNAL ZIP [id number] [place] [address] from Last 3 Months or Most Recently Relevant to Health Maintenance Care Teams Regulator Inspector Relationship Specialty Start Date End Date Pcp, No . PCP - General 05/31/18
--- NOTE | 2024-02-11 13:45 | P.LACCB_ITS ---
Consult Note - Mom Date of Visit Date of visit: 02/11/24 client service consultant: Eloise Cunha Visit Code: Visit Patient's Information Phone number: [phone] Para: 1 Allergies gluten Allergy (Intermediate, Verified 02/04/24 14:41) Gastrointestinal Upset Mother's Medical History: Medical History (Updated 02/06/24 @ 12:40 by Krysten Martinez CNM) Small intestinal bacterial overgrowth ?K63.8219 - Small intestinal bacterial overgrowth, unspecified (ICD-10) Delivery Information Delivery type: Vaginal Weeks Gestation: 40 Gestational Age: AGA Weight: 3.742 kg Discharge Weight: 3.514 kg Baby's Information Baby's Age at Visit: 6 days Baby's Provider or Clinic: [facility] Jaundice: No Reason for Consult Reason for Consult: mom with very sore nipples, crusted and scabbed Past Experience Past Experience: No Current Frequency of Day Feedings: every 2-3 hours Frequency of Night Feedings: every 3 hours Both Breasts: Yes Suck: strong Latch: parents think wide and deep Length of Time: 12-15 min on 1st side, 5 on 2nd; or 25 min on just one to give nipple break Pumping Pumping: No Supplementing EMB Supplement: No Formula Supplement: No Baby Elimination Number of Wet Diapers a Day: 6+ Number of BM a Day: 3-4 or more, yellow/seedy Breast/Nipple Condition Breast Information: Breasts WNL, symmetrical and rounded. Intramammary distance <1.5 inches. Nipples are supple and without retraction. Mom reports feeling full before nursing and breast softening after nursing session. Engorgement: No (mild) Maternal Nipple Condition - Left: Common Nipple and Cracking/ Fissures Maternal Nipple Condition - Right: Common Nipple and Cracking/ Fissures Sore Nipples: Yes Interventions for Sore Nipples: Lansinoh, Expressed Breast Milk and Other (has silverettes) Onsite Pre-Feed weight: 3.674 kg Post-Feed weight: 3.724 kg Milk Transferred (mL): 50 Pre-Nursing Left Nipple: Redness and Crusting/Scabs Pre-Nursing Right Nipple: Redness and Crusting/Scabs Post-Nursing Left Nipple: Redness and Crusting/Scabs Post-Nursing Right Nipple: Redness and Crusting/Scabs Assessments/Interventions Assessments/Interventions: Nipple trauma Discussed importance of wide deep latch to prevent further nipple trauma; nipple slightly beveled after nursing. Showed mom how to bring baby lower on breast (using football hold) to hold chin down and get deeper latch for less nipple pain. Mom thinks she can get a deeper latch using this position than cross cradle. For nipple healing: Saline wash after , leave nipples open to air for 5-10 minutes Nipple cream for soothing Silverettes Monitor for breast pain, redness, or fever > call OB/Tree Shear Operator if this happens given risk of mastitis with open wounds Feeding options: Breastfeed through healing Pump and bottle if nipples too sore to nurse; reviewed use of pump, bottle feeding amounts Can do a combination of these two as mom feels more able to nurse. Reviewed set up of breastpump with mom, measured for flange size to prevent additional nipple trauma, discussed pumpng time; only need to pump enough to feed baby at this time fi chooses this option; can pump a bit more if needed to relieve fullness (cautioned against over pumping so as not to increase supply more than is needed right now) Call if needed for further questions or if nipples arent' healing Time spent reviewing chart and face to face with mom, and baby: 90 minutes Meds Home Medications and Allergies Home Medications ?Medication ?Instructions ?Recorded ?Confirmed ?Type cholecalciferol (vitamin D3) 50 100 mcg PO QDAY 07/03/23 02/11/24 History mcg (2,000 unit) capsule docosahexaenoic acid 200 mg 200 mg PO DAILY 07/03/23 02/11/24 History capsule ( DHA) magnesium 250 mg tablet 250 mg PO QDAY 07/03/23 02/11/24 History ferrous sulfate 27 mg iron tablet 27 mg PO .every other day 11/23/23 02/11/24 History Allergies Allergy/AdvReac Type Severity Reaction Status Date / Time gluten Allergy Intermediate Gastrointestinal Verified 02/04/24 14:41 Upset
== END 2024-02-11 12:33 | disposition home or self-care (01) ==
PROVIDERS: Visit Provider Obstetrics & Gynecology
DX: Z39.1 Encounter for care and examination of lactating mother (principal)
CPT/HCPCS: G0463

== ENCOUNTER 2024-03-06 14:06 | Outpatient (CLI) | payer OTHER, SELFPAY ==
--- OUTSIDE RECORDS SUMMARY | 2024-03-06 14:09 | XMS_ITS | Clinical Summary ---
Author Organization [employer] [facility] Address [place], [place] [address] Care Team Providers Care Fisher Lobster Name Role Phone Pcp, No Primary Care [...] 09/15/2022 09/15/2021 COVID-19 vaccine series ( season) 2024 Influenza for age 9-49 02/24/2024 Tdap Completed 05/13/2012 HIV for age 15-65 Completed 09/17/2012 Pneumococcal series for age 6-64 Aged Out No longer eligible b ased on patient's age to complete this topic Procedures Procedure Name Priority Date/Time Associated Diagnosis Comments SECONDARY CONNECTOR ARMATURE THIN PREP PAP SCREEN IMAGED Routine 01/20/2019 12:00 PM CDT ANTI HIV 1/2 Routine 09/17/2012 9:19 AM CDT Foreign travel from Last 3 Months or Most Recently Relevant to Health Maintenance Results * SECONDARY CONNECTOR ARMATURE THIN PREP PAP SCREEN IMAGED (01/20/2019 12:00 PM CDT) Case Report Gynecologic Cytology Report ? Case: [id number] ? Authorizing Provider: ??Margaret Lester PA-C ?Collected: ? 01/20/2019 1200 ? Ordering Location: ? [facility] ?Received: ?01/20/2019 1859 ? First Screen: ?Rios Vega ? Specimen: ?SECONDARY CONNECTOR ARMATURE ThinPrep Vial Screening, Cervical/Vaginal, 01/20/19 ? 01/28/2019 1:24 PM CDT [facility] INTERPRETATION/ RESULT NEGATIVE FOR INTRAEPITHELIAL LESION OR MALIGNANCY (NIL) (none) 01/28/2019 1:24 PM CDT [facility] IMEN ADEQUACY Satisfactory for evaluation Endocervical component present 01/28/2019 1:24 PM CDT [facility] HPV REQUEST HPV if ASCUS 01/28/2019 1:24 PM CDT [facility] Date of LMP 01/16/2019 01/28/2019 1:24 PM CDT [facility] Last Pap Date 01/28/2019 1:24 PM CDT [facility] Comment:2015 Last Pap Result NIL 9 1:24 PM CDT [facility] Automated Review Successful 01/28/2019 1:24 PM CDT [facility] Comment:Specimen processed s uccessfully by automated art handler device, Servicelink HoldingsPrep Imaging System, [employer] Note The pap test is a [...] lesions. Cytology is screened and interpreted at [facility] - [address], [place] [address] and [facility] - [address]; [place] [address] and [facility] - [address]; [place] [address] and [facility] [address]; [place] [address] 01/28/2019 1:24 PM CDT [facility] Other (Cervical/Vagina l) 01/20/2019 12:00 PM CDT 01/20/2019 6:59 PM CDT September Trevon ROBERSON PATHOLOGY/CYTOLOGY Performing Organization Address City/[facility]/ZIP Co de Phone Number [facility] [address] [place] [address], * ANTI HIV 1/2 (09/17/2012 9:19 AM CDT) ANTI HIV 1/2 Non-reacti ve [facility] Blood specimen (specimen) BLOOD SPECIMEN / Unknown 09/17/2012 9:19 AM CDT 09/17/2012 9:05 AM CDT Zuleika Waters MACHINE RECORDS UNITS SUPERVISOR SEND OUTS [facility] INTERNAL ZIP [id number] [place] [address] from Last 3 Months or Most Recently Relevant to Health Maintenance Care Teams Fisher Lobster Relationship Specialty Start Date End Date Pcp, No . PCP - General 05/31/18
--- NOTE | 2024-03-06 14:36 | W.PM.LAC.MF ---
Follow-Up Note: Mom Date of visit Date of visit: 03/06/24 quantitative consultant: Eloise Cunha Visit Code: Visit Patient's Information Allergies gluten Allergy (Intermediate, Verified 02/20/24 11:29) Gastrointestinal Upset Delivery Information Delivery type: Vaginal Weeks Gestation: 40 Gestational Age: AGA Weight: 3.742 kg Baby's Information Baby's Age at Visit: 1 month Reason for Consult Reason for Consult: ongoing nipple pain for mom with Current Frequency of Day Feedings: about every 3 hours Frequency of Night Feedings: 4-6 hour sleep stretch Both Breasts: Yes Suck: strong, very tight nutrition services assistant per mom Latch: shallow sometimes and hard to adjust Length of Time: about 10 min ea side Pumping Pumping: Yes Quantity Pumped: 2-4 oz total depending on time between pumpings/feedings Supplementing EMB Supplement: Yes (takes about 3 oz/bottle feed) Formula Supplement: No Baby Elimination Number of Wet Diapers a Day: each feeding Number of BM a Day: 6+ a day Breast/Nipple Assessment Breast/Nipple Assessment: Breasts are symmetrical with rounded lower quadrants, intramammary distance is less than 1.5 inches. No erythema. Nipples are supple, everted prior to feeding. 1-2mm open wounds at the end of each nipple. Mom currently using [employer] nipple butter with parchment paper for wound healing. Onsite Pre-feed weight: 4.36 kg Post-Feed weight: 4.412 kg Milk Transferred (mL): 52 (10 min on left side and 7 min on right side; babe had fed less than 2 hours ago so not a typical feeding per mom-usually a bit longer) Assessments/Interventions Assessments/Interventions: Worked with mom to fine tune the asymmetrical latch technique for a wide, deep latch and mom reports increased comfort with this. Discussed the need to wait for baby to get mouth open very wide before bringing on to breast, and the need to bring on deep and fast before baby clamps down. After multiple tries, mom able to accomplish this. Sill has some nipple pain while nursing but likely due to open wounds, mom describes this pain as tolerable. Close visualization shows babe's mouth at least 150* and lips flanged out sneha and bottom. When baby comes off breast, less creased than mom notices at home. Showed mom how to adjust position even more based on where she sees the crease in her nipple. Reviewed in both football and cross cradle hold Discussed jaw massage for 1-2 minutes to assist baby to relax prior to coming to breast. Discussed use of hydrocortisone cream 3 times a day for 3-5 days may help decrease general irritation mom is feeling. Discussed trying Silverettes again for 24 hours while work on latch and see if she gets more healing now. Ibuprofen for mom ok to help decrease breast discomfort as needed. Mom to call back if no improvement toward resolution in 7 days, sooner with worsening symptoms. Time spent reviewing chart and face to face with mom and baby: 75 minutes Meds Home Medications and Allergies Home Medications ?Medication ?Instructions ?Recorded ?Confirmed ?Type cholecalciferol (vitamin D3) 50 100 mcg PO QDAY 07/03/23 02/20/24 History mcg (2,000 unit) capsule docosahexaenoic acid 200 mg 200 mg PO DAILY 07/03/23 02/20/24 History capsule ( DHA) magnesium 250 mg tablet 250 mg PO QDAY 07/03/23 02/20/24 History ferrous sulfate 27 mg iron tablet 27 mg PO .every other day 11/23/23 02/20/24 History polyethylene glycol 3350 17 4 g PO ONCE 02/20/24 02/20/24 History gram/dose oral powder Allergies Allergy/AdvReac Type Severity Reaction Status Date / Time gluten Allergy Intermediate Gastrointestinal Verified 02/20/24 11:29 Upset
== END 2024-03-06 14:07 | disposition home or self-care (01) ==
PROVIDERS: Visit Provider Obstetrics & Gynecology
DX: Z39.1 Encounter for care and examination of lactating mother (principal)
CPT/HCPCS: G0463